=== PATIENT | female | born 1940 | race Caucasian/White ===

== ENCOUNTER 2020-11-21 15:15 | Emergency (ER) | payer OTHER ==
[~2020-11-21] VITALS: Ht 167.6 cm; Wt 83.9 kg
--- NOTE | ~2020-11-21 | EMS ---
[facility] [address] [place] [address] EMS Patient Care Report Name: DEON ROMERO Room #: REG YARELIS Jimenez#: [id number] Admission: 11/21/20 Attend Phys: Discharge: Date of : 38 Report #: [id number] THIS REPORT FOR: //name// Report Transmitted: 11/21/2020 16:34 EMS Care Summary [facility] Incident [id number] @ 11/21/2020 14:34 Incident Location [address] [place] [address] Patient DEON ROMERO Female, 80 Years 1940 Patient Address [address] [place] [address] Patient History Dementia,Syncope,Hyperlipidemia,Depression,Osteoarthritis,Anxiety,Insomnia, Patient Allergies Codeine, Patient Medications Keflex, Aspirin, Melatonin, Nitroglycerin, Depakote, Remeron, Divalproex Sodium, Alendronate, Mirtazapine, Memantine, Donepezil, Acetaminophen, Sertraline, Chief Complaint Blood in urine Disposition Transported No Lights/[employer] Reason Sick Person Transported To [facility] Narrative Called for a Code 3 sick person. Call notes indicate a patient with a severe [facility] [address] [place] [address] EMS Patient Care Report Name: DEON ROMERO Room #: REG YARELIS Jimenez#: [id number] Admission: 11/21/20 Attend Phys: Discharge: Date of : 38 Report #: [id number] UTI, patient would be at the front hallway. Upon contact, patient is CAOX3 in a wheelchair in the lobby. Staff note that the patient has been battling an UTI for 4 days and on antibiotics without success. Today, she is noted to have blood in her urine, and staff report a combative behavior preventing a successful clean cath or catch. Patient is compliant, afebrile, confused to her normal state and answers common questions appropriately. Patient's family and POA have been notified, and her MD requested a non-emergent transport to her ER for follow up care for more aggressive treatment for the UTI. Patient was assisted to the cot and unit after a mask was placed. Patient has received her COVID vaccination series with no known exposures. Vitals taken en route, and patient would have appropriate conversations but forget 10 minutes later about her condition. Patient did recall fighting with staff this morning stating that she was upset, but was pleasant throughout transport. Patient delivered to ER in care of staff with rails up. Initial Vitals @15:01P: 112,BP: 101/67,SpO2: 93, @15:00P: 109,SpO2: 95, @14:49P: 87,R: 18,BP: 124/77,Pain: 0/10,GCS: 14,Temp: 96.8F,SpO2: 95,Revised Trauma: 12, Assessments @14:45MENTAL:SKIN:No Abnormalities,HEENT:Head/Face: No Abnormalities,Eyes: No Abnormalities,Neck/Airway: No Abnormalities,LUNG SOUNDS:General: No Abnormalities,Left Upper: No Abnormalities,Right Upper: No Abnormalities,Left Lower: No Abnormalities,Right Lower: No Abnormalities,ABDOMEN:General: No Abnormalities,Left Upper: No Abnormalities,Right Upper: No Abnormalities,Left Lower: No Abnormalities,Right Lower: No Abnormalities,PELVIS//GI:EXTREMITIES:Left Arm: No Abnormalities,Right Arm: No Abnormalities,Left Leg: No Abnormalities,Right Leg: No Abnormalities,PULSE:NEURO:No Abnormalities, Impression Urinary Tract Infection (UTI) Procedures @14:45Surgical Mask on PatientResponse: Unchanged Timeline 14:32,Call Received 14:32,Psap Call 14:34,Dispatched 14:35,En Route 14:40,On Scene 14:43,At Patient [address] [address] EMS Patient Care Report Name: DEON ROMERO Room #: CHUNG Jimenez#: [id number] Admission: 11/21/20 Attend Phys: Discharge: Date of : 38 Report #: [id number] 14:45,Surgical Mask on Patient,Response: Unchanged 14:49,BP: 124/77 M,PULSE: 87,RR: 18 R,SPO2: 95 Ox,ETCO2: ,BG: ,PAIN: 0,GCS: 14, 14:51,Depart Scene 15:00,BP: / M,PULSE: 109,RR: R,SPO2: 95 Ox,ETCO2: ,BG: ,PAIN: ,GCS: , 15:01,BP: 101/67 M,PULSE: 112,RR: R,SPO2: 93 Ox,ETCO2: ,BG: ,PAIN: ,GCS: , 15:06,At Destination 15:31,Call Closed Disclaimer [email or web address] Copyright 2020 [employer] This EMS Care Summary contains data elements from the applicable legal record (which may be displayed differently). It is designed to provide pertinent information for the following purposes: continuity of care, clinical quality, and state data reporting. The complete legal record is available to ED staff and administrators of the receiving hospital in [email or web address]'s Patient Tracker. All data is provided "as is."
[2020-11-21 15:39] LABS: ABSOLUTE NEUTROPHILS 5.5 thou/uL (1.4-8.2); BASOPHILS 0.4 % (0.0-2.0); EOSINOPHILS 0.6 % (0.0-3.0); HEMATOCRIT 39.4 % (37.0-47.0); HEMOGLOBIN 13.3 gm/dL (12.0-15.0); LYMPHOCYTES 21.8 % (24.0-44.0); MCH 30.8 pg (26.0-34.0); MCHC 33.8 g/dL (28.0-37.0); MCV 91.2 fL (80.0-100.0); MONOCYTES 6.6 % (1.0-8.0); PLATELET COUNT 259 thou/uL (150-400); POLYS 70.6 % (36.0-66.0); RBC 4.32 mil/uL (4.20-5.00); RDW 13.7 % (10.5-14.5); WBC 7.8 thou/uL (4.0-11.0)
[2020-11-21] MEDS ORDERED: FOSAMAX 70 MG T70 MG PO (15:40)
[2020-11-21] MEDS ORDERED: ASA81BEC PO (15:40)
[2020-11-21] MEDS ORDERED: MIRTAZAPINE15 M2 PO (15:41)
[2020-11-21] MEDS ORDERED: THERAGRAN-M PR1 EAC1 PO (15:41)
[2020-11-21] MEDS ORDERED: DIVALPROEX SOD250 M3 PO (15:41)
[2020-11-21] MEDS ORDERED: VITAMIN D21250 MC1 PO (15:42)
[2020-11-21] MEDS ORDERED: MELATONIN3 M1 PO (15:42)
[2020-11-21] MEDS ORDERED: NITROSTAT0.4 M1 SUBLING (15:44)
[2020-11-21] MEDS ORDERED: ROBITUSSIN15 MG/5 ML PO (15:44)
[2020-11-21 15:47] LABS: POTASSIUM 4.1 mmol/L (3.5-5.1)
[2020-11-21 15:53] LABS: ALBUMIN 3.2 g/dL (3.4-5.0); TOTAL BILIRUBIN 0.2 mg/dL (0.2-1.0); TOTAL PROTEIN 7.2 g/dL (6.4-8.2)
[2020-11-21 16:10] LABS: URINE BILIRUBIN NEGATIVE (Negative); URINE BLOOD TRACE (Negative); URINE CLARITY CLEAR; URINE COLOR YELLOW; URINE GLUCOSE-RANDOM* NEGATIVE (Negative); URINE KETONES NEGATIVE (Negative); URINE LEUKOCYTES-REFLEX NEGATIVE (Negative); URINE NITRITE-REFLEX NEGATIVE (Negative); URINE PROTEIN (DIPSTICK) NEGATIVE (Negative)
[2020-11-21 19:09] VITALS: BP 139/104
== END 2020-11-21 19:11 | disposition home or self-care (01) ==
LOC: ER 15:15
PROVIDERS: Emergency Medicine
DX: Z71.1 Person with feared health complaint in whom no diagnosis is made (principal); R41.0 Disorientation, unspecified; Z79.899 Other long term (current) drug therapy; Z79.82 Long term (current) use of aspirin